=== PATIENT | male | born 2000 | race African-American/Black ===

== ENCOUNTER 2018-02-27 17:20 | Emergency (ER) | payer OTHER ==
[~2018-02-27] VITALS: Ht 185.4 cm; Wt 83.6 kg
[2018-02-27 18:11] LABS: APPEARANCE CLEAR ((CLEAR)); BILIRUBIN NEGATIVE; BLOOD NEGATIVE; COLOR YELLOW ((YELLOW)); GLUCOSE (STRIP) NEGATIVE; KETONES 5; LEUKOCYTES NEGATIVE; NITRITE NEGATIVE; PROTEIN (STRIP) 30; SPECIFIC GRAVITY 1.031 (1.000-1.030); UCUL ADDED? NO
[2018-02-27 18:29] LABS: HEMOGLOBIN 15.2 G/DL (12.5-16.6); MCH 27.9 PG (29.0-34.0); MCV 84.6 FL (86-99); RBC DIS.WIDTH-CV 12.9 % (11.8-14.6); RBC DIS.WIDTH-SD 39.4 % (39-53); RED BLOOD COUNT 5.44 M/uL (4.00-5.50)
[2018-02-27 18:41] LABS: CHLORIDE 106 mEq/L (99-109); POTASSIUM 4.1 mEq/L (3.7-5.4); SODIUM 143 mEq/L (136-147)
[2018-02-27 18:43] LABS: GLUCOSE 99 mg/dL (70-99)
[2018-02-27 18:46] LABS: CREATININE 1.2 mg/dL (0.6-1.3)
[2018-02-27 18:47] LABS: UREA NITROGEN (BUN) 16 mg/dL (9-23)
[2018-02-27 18:49] LABS: GFR ESTIMATE (CALCULATED) > 59 mL/min/ (58.99-99999)
[2018-02-27 19:14] LABS: PLATELET COUNT 161 K/uL (156-360)
[2018-02-27] MEDS ORDERED: MIRALAX255 GM PO (23:07)
[2018-02-27 23:33] VITALS: BP 123/71
== END 2018-02-27 23:34 | disposition home or self-care (01) ==
LOC: EME 17:20
DX: K59.00 Constipation, unspecified (principal); R10.9 Unspecified abdominal pain
CPT/HCPCS: 74176; 80048; 81003; 85027; 99281; 99284; J1885; J2405; J7030